=== PATIENT | female | born 1995 | race American Indian/Alaskan Native ===

== ENCOUNTER 2017-06-09 20:56 | Emergency (ER) | payer SELFPAY ==
[2017-06-09 21:30] VITALS: BP 147/86
[2017-06-09] MEDS ORDERED: ASPIRIN PO ONE (21:30)
[2017-06-09 22:01] LABS: Basophils % (Auto) 0.7 % (0.0-1.8); Eosinophils # (Auto) 0.1 K/mm3 (0.0-0.4); Eosinophils % (Auto) 1.4 % (0.0-4.3); Hematocrit 39.3 % (30.3-42.9); Hemoglobin 12.8 gm/dl (10.1-14.3); Lymphocytes # (Auto) 1.7 K/mm3 (1.2-5.4); Lymphocytes % (Auto) 34.8 % (13.4-35.0); Mean Corpuscular HGB Conc 33 % (30-34); Mean Corpuscular Volume 75 fl (79-97); Monocytes # (Auto) 0.4 K/mm3 (0.0-0.8); Platelet Count 202 K/mm3 (140-440); Red Blood Count 5.22 M/mm3 (3.65-5.03); Red Cell Distribution Width 18.5 % (13.2-15.2)
[2017-06-09 22:02] LABS: Mean Corpuscular Hemoglobin 25 pg (28-32)
[2017-06-09 22:48] LABS: BUN/Creatinine Ratio 23; Blood Urea Nitrogen 14 mg/dL (7-17); Calcium 9.4 mg/dL (8.4-10.2); Hemolysis Index 14
== END 2017-06-10 00:22 | disposition left against medical advice (07) ==
LOC: ED 20:56
DX: R07.9 Chest pain, unspecified (principal); R06.02 Shortness of breath; Z53.21 Procedure and treatment not carried out due to patient leaving prior to being seen by health care provider
CPT/HCPCS: 36415; 80048; 84484; 85025; 93005; 93010

== ENCOUNTER 2017-06-19 15:49 | Emergency (ER) | payer SELFPAY ==
[2017-06-19 16:08] VITALS: BP 131/67
--- NOTE | 2017-06-19 17:13 | Emergency Department Report ---
Chief Complaint: Vaginal Bleeding Stated Complaint: VAGINAL BLEEDING - HPI History of Present Illness: 21-year-old female presents with 3 weeks of vaginal bleeding. She denies pain. is a possibility. - Exam Vital Signs: Vital Signs 06/19/17 16:05 Temperature 98.4 F Pulse Rate 72 Respiratory 18 Rate Blood Pressure 131/67 O2 Sat by Pulse 100 Oximetry MSE screening note: Focused history and physical exam performed. Due to findings the following was ordered: ED Disposition for MSE Condition: Stable Referrals: PRIMARY CARE, [Primary Care Provider] - 3-5 Days
[2017-06-19 17:49] LABS: HCG Qualitative,Urine Negative (Negative)
--- NOTE | 2017-06-19 19:11 | Emergency Department Report ---
ED Female HPI - General Chief complaint: Vaginal Bleeding Stated complaint: VAGINAL BLEEDING Time Seen by Provider: 06/19/17 18:06 Source: patient Mode of arrival: Ambulatory Limitations: No Limitations - History of Present Illness Initial comments: 21-year-old 2 para 2 female coming in for vaginal bleeding for approximately 3 weeks. Patient reports that she is passing clots. She is not sure if she is hasn't had a cycle in the year. Patient reports that she is going to 4-5 pads a day she denies any nausea no vomiting no surgeries no past medical history currently in no controls denies any abdominal pain no cramping last menstrual period 05/27/2017. Complaint: vaginal bleeding -: week(s) (3) - Related Data Sexually active: Yes : 2 Para: 2 Previous Rx's Medication Instructions Recorded Last Taken Type medroxyPROGESTERone ACETATE 10 mg PO QDAY 10 Days #10 tablet 06/19/17 Unknown Rx [Provera] Allergies Allergy/AdvReac Type Severity Reaction Status Date / Time No Known Allergies Allergy Verified 06/19/17 16:05 ED Review of Systems ROS: Stated complaint: VAGINAL BLEEDING Other details as noted in HPI Constitutional: denies: chills, fever Eyes: denies: eye pain, eye discharge, vision change ENT: denies: ear pain, throat pain Respiratory: denies: cough, shortness of breath, wheezing Cardiovascular: denies: chest pain, palpitations Endocrine: no symptoms reported Gastrointestinal: denies: abdominal pain, nausea, diarrhea Genitourinary: other (vaginal bleeding) Musculoskeletal: denies: back pain, joint swelling, arthralgia Skin: denies: rash, lesions Neurological: denies: headache, weakness, paresthesias Psychiatric: denies: anxiety, depression Hematological/Lymphatic: denies: easy bleeding, easy bruising ED Past Medical Hx - Past Medical History Hx Hypertension: No Hx CVA: No Hx Heart Attack/AMI: No Hx Congestive Heart Failure: No Hx Diabetes: No Hx Deep Vein Thrombosis: No Hx Pulmonary Embolism: No Hx GERD: No Hx Liver Disease: No Hx Renal Disease: No Hx Sickle Cell Disease: No Hx Arthritis: No Hx Headaches / Migraines: No Hx Seizures: No Hx Kidney Stones: No Hx Psychiatric Treatment: No Hx Asthma: No Hx COPD: No Hx Tuberculosis: No Hx Dementia: No Hx HIV: No - Surgical History Hx Coronary Stent: No Hx Open Heart Surgery: No Hx Internal Defibrillator: No Hx Cholecystectomy: No Hx Appendectomy: No Hx Breast Surgery: No - Social History Smoking Status: Current Some Day Smoker Substance Use Type: Alcohol - Medications Home Medications: Home Medications Medication Instructions Recorded Confirmed Last Taken Type medroxyPROGESTERone ACETATE 10 mg PO QDAY 10 Days #10 tablet 06/19/17 Unknown Rx [Provera] ED Physical Exam - General Limitations: No Limitations General appearance: alert, in no apparent distress - Head Head exam: Present: atraumatic, normocephalic - Eye Eye exam: Present: normal appearance - ENT ENT exam: Present: mucous membranes moist - Neck Neck exam: Present: normal inspection - Respiratory Respiratory exam: Present: normal lung sounds bilaterally. Absent: respiratory distress - Cardiovascular Cardiovascular Exam: Present: regular rate, normal rhythm. Absent: systolic murmur, diastolic murmur, rubs, gallop - GI/Abdominal GI/Abdominal exam: Present: soft, normal bowel sounds - Extremities Exam Extremities exam: Present: normal inspection - Back Exam Back exam: Present: normal inspection - Neurological Exam Neurological exam: Present: alert, oriented X3 - Psychiatric Psychiatric exam: Present: normal affect, normal mood - Skin Skin exam: Present: warm, dry, intact, normal color. Absent: rash ED Course Vital Signs 06/19/17 06/19/17 16:05 18:33 Temperature 98.4 F Pulse Rate 72 Respiratory 18 18 Rate Blood Pressure 131/67 O2 Sat by Pulse 100 Oximetry ED Medical Decision Making - Medical Decision Making Patient's been seen by this provider in fast track. Urine test was negative. Discussed with patient that we will diagnose her with dysfunction uterine bleeding. Will discharge patient on Provera 10 mg one tablet by mouth daily for 10 days. For her to follow up with MANAGER [facility] or primary care provider. Critical care attestation.: If time is entered above; I have spent that time in minutes in the direct care of this critically ill patient, excluding procedure time. ED Disposition Clinical Impression: Dysfunctional uterine bleeding Disposition: DC-01 TO HOME OR SELFCARE Is pt being admited?: No Does the pt Need Aspirin: No Condition: Stable Instructions: Dysfunctional Uterine Bleeding (ED) Additional Instructions: Face take medication as prescribed. Follow-up the primary care provider CORRECTIVE AND MANUAL ARTS THERAPIST for further evaluation of her dysfunctional uterine bleeding. Prescriptions: medroxyPROGESTERone ACETATE [Provera] 10 mg PO QDAY 10 Days #10 tablet Referrals: PRIMARY CARE, [Primary Care Provider] - 3-5 Days [facility] [Provider Group] - 3-5 Days
== END 2017-06-19 18:32 | disposition home or self-care (01) ==
LOC: ED 15:49
DX: N93.8 Other specified abnormal uterine and vaginal bleeding (principal)
CPT/HCPCS: 81025

== ENCOUNTER 2017-07-30 14:51 | Emergency (ER) | payer SELFPAY ==
[2017-07-30 15:47] LABS: Basophils % (Auto) 0.4 % (0.0-1.8); Eosinophils # (Auto) 0.1 K/mm3 (0.0-0.4); Eosinophils % (Auto) 1.3 % (0.0-4.3); Hematocrit 27.7 % (30.3-42.9); Hemoglobin 8.7 gm/dl (10.1-14.3); Lymphocytes # (Auto) 1.5 K/mm3 (1.2-5.4); Mean Corpuscular HGB Conc 32 % (30-34); Mean Corpuscular Volume 74 fl (79-97); Monocytes # (Auto) 0.3 K/mm3 (0.0-0.8); Monocytes % (Auto) 6.4 % (0.0-7.3); Platelet Count 316 K/mm3 (140-440); Red Blood Count 3.75 M/mm3 (3.65-5.03)
[2017-07-30 15:50] LABS: Bilirubin,Urine NEG (Negative); Blood,Urine LG (Negative); Color,Urine Red (Yellow); Mucus,Urine 3+ /HPF; Urobilinogen,Urine < 2.0 mg/dL (<2.0)
[2017-07-30 15:51] LABS: Mean Corpuscular Hemoglobin 23 pg (28-32)
[2017-07-30 15:51] LABS: RBC,Urine > 182.0 /HPF (0.0-6.0)
[2017-07-30] MEDS ORDERED: TYLENOL PO ONE (19:35)
--- NOTE | 2017-07-30 19:52 | Emergency Department Report ---
HPI - General Chief Complaint: Vaginal Bleeding Time Seen by Provider: 07/30/17 18:59 - HPI HPI: The patient is a 21-year-old female who presents for valuation of chest pain. The patient reports episodic chest pain for greater than the past month, pounding in quality when present, moderate in severity, exacerbated with lying flat. She shares that she hasn't lost any history of anxiety. She also has a secondary complaint of prolonged vaginal bleeding for the past one month. She has a history of irregular menstrual periods. The patient denies fever, neck pain, parasthesias, dyspnea, cough, hemoptysis, palpitations, dizziness, syncope , unilateral leg swelling, calf muscle pain. Patient also denies cocaine or other stimulant use, history of DVT or PE, recent immobilization, or history of cancer. ED Past Medical Hx - Past Medical History Hx Hypertension: No Hx CVA: No Hx Heart Attack/AMI: No Hx Congestive Heart Failure: No Hx Diabetes: No Hx Deep Vein Thrombosis: No Hx Pulmonary Embolism: No Hx GERD: No Hx Liver Disease: No Hx Renal Disease: No Hx Sickle Cell Disease: No Hx Arthritis: No Hx Headaches / Migraines: No Hx Seizures: No Hx Kidney Stones: No Hx Psychiatric Treatment: No Hx Asthma: No Hx COPD: No Hx Tuberculosis: No Hx Dementia: No Hx HIV: No - Surgical History Hx Coronary Stent: No Hx Open Heart Surgery: No Hx Internal Defibrillator: No Hx Cholecystectomy: No Hx Appendectomy: No Hx Breast Surgery: No - Social History Smoking Status: Current Some Day Smoker Substance Use Type: Alcohol - Medications Home Medications: Home Medications Medication Instructions Recorded Confirmed Last Taken Type medroxyPROGESTERone ACETATE 10 mg PO QDAY 10 Days #10 tablet 06/19/17 Unknown Rx [Provera] Cyclobenzaprine HCl [Flexeril 5 MG 5 mg PO Q8HR PRN #12 tab 07/30/17 Unknown Rx TAB] ED Review of Systems ROS: Stated complaint: ANXIETY ATTACK/BLOOD CLOTS/CP Other details as noted in HPI Constitutional: denies: fever ENT: denies: throat or neck pain Respiratory: denies: cough, shortness of breath Cardiovascular: reports: chest pain Endocrine: denies unexplained weight loss or gain Gastrointestinal: denies: abdominal pain, nausea Genitourinary: denies: dysuria Musculoskeletal: denies: leg swelling Skin: denies: rash Neurological: denies: headache Hematological/Lymphatic: denies: easy bleeding or easy bruising Psych: denies sadness or hopelessness Physical Exam - Physical Exam Vital Signs: Vital Signs 07/30/17 15:09 Temperature 98 F Pulse Rate 79 Respiratory 16 Rate Blood Pressure 135/70 O2 Sat by Pulse 100 Oximetry Physical Exam: General: well-nourished, well-developed, no acute distress Head: Normocephalic, atraumatic Eyes: normal sclera ENT: Mucous membranes are pink and moist Neck: trachea midline, neck supple, No neck stiffness, no cervical adenopathy Respiratory: Breath sounds equal bilaterally, no wheezing, rales, or rhonchi Cardio: S1 and S2 present, no murmurs, rubs, gallops, capillary refill is brisk Abdomen: Normoactive bowel sounds, soft abdomen, no rigidity, no guarding or rebound tenderness Musc: No pitting edema Skin: No rash Neuro: no facial drooping, normal speech Psych: Normal affect ED Course Vital Signs 07/30/17 15:09 Temperature 98 F Pulse Rate 79 Respiratory 16 Rate Blood Pressure 135/70 O2 Sat by Pulse 100 Oximetry ED Medical Decision Making - Lab Data Result diagrams: 07/30/17 15:19 - Medical Decision Making The patient was seen and examined by myself. The patient is placed on a cutter grind tool technician and continuous pulse ox. On initial evaluation, the patient was found to be in no distress. EKG was negative for findings suggestive of acute cardiac infarct. Labs and imaging are obtained. Chest x-ray is negative for pneumothorax, focal consolidation, pulmonary vascular congestion, pleural effusion, or other obvious acute cardiopulmonary disease process. Lab results revealed low hemoglobin 8.7, but otherwise labs are grossly unrevealing. The patient was reevaluated and reported that their symptoms were markedly improved. As the patient has a JORDY risk score less than 2, and a well's score less than 2, and is PERC negative, the patient is at low risk of ACS or pulmonary emboli etiology of their symptoms. The patient is stable for discharge with outpatient follow-up. The patient is given follow-up and return instructions. The patient expressed understanding and agreed with the plan. The patient is discharged in stable condition. Critical care attestation.: If time is entered above; I have spent that time in minutes in the direct care of this critically ill patient, excluding procedure time. ED Disposition Clinical Impression: Acute chest pain, Vaginal bleeding Disposition: TO HOME OR SELFCARE Is pt being admited?: No Does the pt Need Aspirin: No Condition: Stable Instructions: Chest Pain (ED), Costochondritis (ED), Dysfunctional Uterine Bleeding (ED), Menorrhagia (ED) Referrals: [facility] [Provider Group] - 3-5 Days Time of Disposition: 19:36
[2017-07-30 21:59] VITALS: BP 133/76
== END 2017-07-30 19:48 | disposition home or self-care (01) ==
LOC: ED 14:51
DX: R07.89 Other chest pain (principal); N93.9 Abnormal uterine and vaginal bleeding, unspecified; F17.200 Nicotine dependence, unspecified, uncomplicated
CPT/HCPCS: 36415; 81001; 84702; 85025; 86850; 86900; 86901; 99284

== ENCOUNTER 2020-08-03 07:21 | Emergency (ER) | payer SELFPAY ==
[2020-08-03 07:34] VITALS: BP 138/74
--- NOTE | 2020-08-03 07:39 | Emergency Department Report ---
ED Female HPI - General Chief complaint: Vaginal Bleeding Stated complaint: BLEEDING Time Seen by Provider: 08/03/20 07:34 Source: patient Mode of arrival: Ambulatory Limitations: No Limitations - History of Present Illness Initial comments: The patient was evaluated in the emergency department for symptoms described in the history of present illness. He/she was evaluated in the context of the global COVID-19 pandemic, which necessitated consideration that the patient might be at risk for infection with the virus that causes COVID-19. [facility] protocols and algorithms that pertain to the evaluation of patients at risk for COVID-19 are in a state of rapid change based on information released by regulatory bodies including the CDC and federal and state organizations. These policies and algorithms were followed during the patient's care in the emergency department. Please note that these policies, procedures and recommendations changed on a rapid basis. 24-year-old -[place] female presents to the emergency room for moderate vaginal bleeding for close to 3 weeks. Patient states she has a history of dysfunctional uterine bleeding. She denies any dizziness denies any pelvic pain no cramping no nausea no vomiting no diarrhea. She states she goes through about 5-6 pads a day. MD Complaint: vaginal bleeding Onset/Timin -: week(s) Severity scale (0 -10): 0 Consistency: intermittent Improves with: none Worsens with: none Are you Now?: No Associated Symptoms: vaginal bleeding. denies: vaginal discharge, abdominal pain, nausea/vomiting, fever/chills, headaches, dysuria, rash, shortness of breath, weakness - Related Data Sexually active: Yes Previous Rx's Medication Instructions Recorded Last Taken Type medroxyPROGESTERone ACETATE 10 mg PO QDAY 10 Days #10 tablet 06/19/17 Unknown Rx [Provera] Cyclobenzaprine HCl [Flexeril 5 MG 5 mg PO Q8HR PRN #12 tab 07/30/17 Unknown Rx TAB] Ibuprofen [Motrin] 600 mg PO Q8H PRN #30 tablet 03/20/18 Unknown Rx Iron,Carb/Vit C/Vit B12/Folic 1 each PO DAILY #30 tablet 08/03/20 Unknown Rx [Iron 100 Plus Tablet] medroxyPROGESTERone ACETATE 10 mg PO QDAY #10 tablet 08/03/20 Unknown Rx [Provera] Allergies Allergy/AdvReac Type Severity Reaction Status Date / Time No Known Allergies Allergy Verified 03/20/18 16:24 ED Review of Systems ROS: Stated complaint: BLEEDING Other details as noted in HPI Comment: All other systems reviewed and negative ED Past Medical Hx - Past Medical History Previous Medical History?: No Hx Hypertension: No Hx CVA: No Hx Heart Attack/AMI: No Hx Congestive Heart Failure: No Hx Diabetes: No Hx Deep Vein Thrombosis: No Hx Pulmonary Embolism: No Hx GERD: No Hx Liver Disease: No Hx Renal Disease: No Hx Sickle Cell Disease: No Hx Arthritis: No Hx Headaches / Migraines: No Hx Seizures: No Hx Kidney Stones: No Hx Psychiatric Treatment: No Hx Asthma: No Hx COPD: No Hx Tuberculosis: No Hx Dementia: No Hx HIV: No - Surgical History Past Surgical History?: No Hx Coronary Stent: No Hx Open Heart Surgery: No Hx Internal Defibrillator: No Hx Cholecystectomy: No Hx Appendectomy: No Hx Breast Surgery: No - Social History Smoking Status: Never Smoker Substance Use Type: None - Medications Home Medications: Home Medications Medication Instructions Recorded Confirmed Last Taken Type medroxyPROGESTERone ACETATE 10 mg PO QDAY 10 Days #10 tablet 06/19/17 Unknown Rx [Provera] Cyclobenzaprine HCl [Flexeril 5 MG 5 mg PO Q8HR PRN #12 tab 07/30/17 Unknown Rx TAB] Ibuprofen [Motrin] 600 mg PO Q8H PRN #30 tablet 03/20/18 Unknown Rx Iron,Carb/Vit C/Vit B12/Folic 1 each PO DAILY #30 tablet 08/03/20 Unknown Rx [Iron 100 Plus Tablet] medroxyPROGESTERone ACETATE 10 mg PO QDAY #10 tablet 08/03/20 Unknown Rx [Provera] ED Physical Exam - General Limitations: No Limitations General appearance: alert, in no apparent distress - Head Head exam: Present: atraumatic, normocephalic - Eye Eye exam: Present: normal appearance - ENT ENT exam: Present: normal exam, normal external ear exam - Neck Neck exam: Present: normal inspection, full ROM - Respiratory Respiratory exam: Absent: accessory muscle use - Back Exam Back exam: Present: normal inspection, full ROM - Neurological Exam Neurological exam: Present: alert, oriented X3, normal gait - Psychiatric Psychiatric exam: Present: normal affect, normal mood - Skin Skin exam: Present: warm, dry, intact, normal color. Absent: rash ED Course Vital Signs 08/03/20 07:29 Temperature 97.9 F Pulse Rate 69 Respiratory 16 Rate Blood Pressure 138/74 O2 Sat by Pulse 99 Oximetry ED Medical Decision Making - Lab Data Result diagrams: 08/03/20 08:19 - Medical Decision Making 24-year-old -[place] female presents to the emergency room for moderate vaginal bleeding for close to 3 weeks. Patient states she has a history of dys functional uterine bleeding. She denies any dizziness denies any pelvic pain no cramping no nausea no vomiting no diarrhea. She states she goes through about 5-6 pads a day. CBC, serum hCG. Critical care attestation.: If time is entered above; I have spent that time in minutes in the direct care of this critically ill patient, excluding procedure time. ED Disposition Clinical Impression: Dysfunctional uterine bleeding, Anemia Disposition: - TO HOME OR SELFCARE Is pt being admited?: No Does the pt Need Aspirin: No Condition: Stable Instructions: Abnormal Uterine Bleeding, [id number] Additional Instructions: Please take the Provera as prescribed. It is very important that you start taking iron supplement as you are starting to develop anemia. It is important that you follow-up with an [facility]ER in the next 5 to 7 days to be reevaluated and see why you keep having abnormal uterine bleeding. I have listed several below for your convenience. Prescriptions: Iron,Carb/Vit C/Vit B12/Folic [Iron 100 Plus Tablet] 1 each PO DAILY #30 tablet medroxyPROGESTERone ACETATE [Provera] 10 mg PO QDAY #10 tablet Referrals: [facility] [Provider Group] - 3-5 Days [facility] [Provider Group] - 3-5 Days [facility] [Provider Group] - 3-5 Days Forms: Work/School Release Form(ED)
[2020-08-03 08:33] LABS: Basophils % (Auto) 0.8 % (0.0-1.8); Eosinophils # (Auto) 0.1 K/mm3 (0.0-0.4); Eosinophils % (Auto) 1.8 % (0.0-4.3); Hematocrit 27.4 % (30.3-42.9); Hemoglobin 8.1 gm/dl (10.1-14.3); Lymphocytes # (Auto) 1.7 K/mm3 (1.2-5.4); Lymphocytes % (Auto) 31.1 % (13.4-35.0); Mean Corpuscular HGB Conc 30 % (30-34); Monocytes # (Auto) 0.4 K/mm3 (0.0-0.8); Monocytes % (Auto) 8.3 % (0.0-7.3); Platelet Count 282 K/mm3 (140-440); Red Blood Count 4.63 M/mm3 (3.65-5.03)
[2020-08-03 08:45] LABS: Mean Corpuscular Volume 59 fl (79-97); Red Cell Distribution Width 21.4 % (13.2-15.2)
== END 2020-08-03 09:05 | disposition home or self-care (01) ==
LOC: ED 07:21
DX: N93.8 Other specified abnormal uterine and vaginal bleeding (principal); D64.9 Anemia, unspecified; Z79.899 Other long term (current) drug therapy
CPT/HCPCS: 36415; 84702; 85025; 99283

== ENCOUNTER 2020-08-18 18:19 | Emergency (ER) | payer SELFPAY ==
[2020-08-18 18:31] VITALS: BP 135/73
--- NOTE | 2020-08-18 18:49 | Event Note ---
ED Screening Note Date of service: 08/18/20 Time: 18:46 ED Screening Note: 24 yr old female presents with abnl vag bleeding. She states she has been bleeding abnl since end of May 2020 She came here on 08/03/20 for her symptoms. She was prescribed an medication that started with "M' which she took for 10 days. She states bleeding stopped but she started bleeding again this past thursday. She reports heavy bleeding with clots since thursday. She states she has used 44 pads out of 48 pack She reports low abd cramps She took preg test since thursday and it was neg This initial assessment/diagnostic orders/clinical plan/treatment(s) is/are subject to change based on patients health status, clinical progression and re- assessment by fellow clinical providers in the ED. Further treatment and workup at subsequent clinical providers discretion. Patient/guardian urged not to elope from the ED as their condition may be serious if not clinically assessed and managed. Initial orders include: Labs
[2020-08-18 19:14] LABS: Bilirubin,Urine NEG (Negative); Blood,Urine LG (Negative); Color,Urine Red (Yellow); Urobilinogen,Urine < 2.0 mg/dL (<2.0)
[2020-08-18 19:31] LABS: Mucus,Urine FEW /HPF
[2020-08-18 19:32] LABS: RBC,Urine > 182.0 /HPF (0.0-6.0)
[2020-08-18 19:36] LABS: Mean Corpuscular HGB Conc 29 % (30-34); Platelet Count 271 K/mm3 (140-440); Red Blood Count 4.87 M/mm3 (3.65-5.03)
[2020-08-18 19:37] LABS: Hematocrit 31.4 % (30.3-42.9); Hemoglobin 9.2 gm/dl (10.1-14.3); Mean Corpuscular Volume 65 fl (79-97); Red Cell Distribution Width 26.7 % (13.2-15.2)
[2020-08-18 19:49] LABS: Alanine Aminotransferase 12 units/L (7-56); Albumin 4.2 g/dL (3.9-5); BUN/Creatinine Ratio 18; Blood Urea Nitrogen 14 mg/dL (7-17); Calcium 9.1 mg/dL (8.4-10.2); Hemolysis Index 7
--- NOTE | 2020-08-18 20:21 | Emergency Department Report ---
ED Female HPI - General Chief complaint: Vaginal Bleeding Stated complaint: DISFUNCTIONAL BLEEDING Time Seen by Provider: 08/18/20 19:45 Source: patient Mode of arrival: Ambulatory Limitations: No Limitations - History of Present Illness Initial comments: Patient is a 24-year-old female presents emergency room with complaints of abnormal uterine bleeding that began last night. She states that she began having heavy bleeding last night. She states today it became slightly gold wheel blocker and polisher and she is only used approximately four pads for the day. She states that she had her last menstrual cycle on August 02 and it lasted approximately 3 weeks. She has a history of irregular menstrual cycles. She is not currently on any control. She has not seen PACKAGING ASSOCIATE in a year. She denies any abdominal pain, fever, nausea, vomiting, diarrhea, urinary symptoms, abnormal vaginal discharge. No past medical history. No allergies to medications. She denies any cigarette use. She denies any history of PE/DVT. She denies any cardiac history. - Related Data Previous Rx's Medication Instructions Recorded Last Taken Type Cyclobenzaprine HCl [Flexeril 5 MG 5 mg PO Q8HR PRN #12 tab 07/30/17 Unknown Rx TAB] Ibuprofen [Motrin] 600 mg PO Q8H PRN #30 tablet 03/20/18 Unknown Rx Iron,Carb/Vit C/Vit B12/Folic 1 each PO DAILY #30 tablet 08/03/20 Unknown Rx [Iron 100 Plus Tablet] medroxyPROGESTERone ACETATE 10 mg PO QDAY #10 tablet 08/03/20 Unknown Rx [Provera] Docusate Sodium [Colace] 100 mg PO BID #60 capsule 08/18/20 Unknown Rx Ferrous Sulfate [Ferrous Sulfate 324 mg PO DAILY #30 tablet. 08/18/20 Unknown Rx 324 MG] medroxyPROGESTERone ACETATE 10 mg PO QDAY 10 Days #10 tablet 08/18/20 Unknown Rx [Provera] Allergies Allergy/AdvReac Type Severity Reaction Status Date / Time No Known Allergies Allergy Verified 03/20/18 16:24 ED Review of Systems ROS: Stated complaint: DISFUNCTIONAL BLEEDING Other details as noted in HPI Comment: All other systems reviewed and negative ED Past Medical Hx - Past Medical History Hx Hypertension: No Hx CVA: No Hx Heart Attack/AMI: No Hx Congestive Heart Failure: No Hx Diabetes: No Hx Deep Vein Thrombosis: No Hx Pulmonary Embolism: No Hx GERD: No Hx Liver Disease: No Hx Renal Disease: No Hx Sickle Cell Disease: No Hx Arthritis: No Hx Headaches / Migraines: No Hx Seizures: No Hx Kidney Stones: No Hx Psychiatric Treatment: No Hx Asthma: No Hx COPD: No Hx Tuberculosis: No Hx Dementia: No Hx HIV: No - Surgical History Hx Coronary Stent: No Hx Open Heart Surgery: No Hx Internal Defibrillator: No Hx Cholecystectomy: No Hx Appendectomy: No Hx Breast Surgery: No - Social History Smoking Status: Never Smoker Substance Use Type: Alcohol - Medications Home Medications: Home Medications Medication Instructions Recorded Confirmed Last Taken Type Cyclobenzaprine HCl [Flexeril 5 MG 5 mg PO Q8HR PRN #12 tab 07/30/17 Unknown Rx TAB] Ibuprofen [Motrin] 600 mg PO Q8H PRN #30 tablet 03/20/18 Unknown Rx Iron,Carb/Vit C/Vit B12/Folic 1 each PO DAILY #30 tablet 08/03/20 Unknown Rx [Iron 100 Plus Tablet] medroxyPROGESTERone ACETATE 10 mg PO QDAY #10 tablet 08/03/20 Unknown Rx [Provera] Docusate Sodium [Colace] 100 mg PO BID #60 capsule 08/18/20 Unknown Rx Ferrous Sulfate [Ferrous Sulfate 324 mg PO DAILY #30 tablet.dr 08/18/20 Unknown Rx 324 MG] medroxyPROGESTERone ACETATE 10 mg PO QDAY 10 Days #10 tablet 08/18/20 Unknown Rx [Provera] ED Physical Exam - General Limitations: No Limitations General appearance: alert, in no apparent distress - Head Head exam: Present: atraumatic, normocephalic - Eye Eye exam: Present: normal appearance - ENT ENT exam: Present: mucous membranes moist - Respiratory Respiratory exam: Present: normal lung sounds bilaterally. Absent: respiratory distress, wheezes, rales, rhonchi, stridor, chest wall tenderness, accessory muscle use, decreased breath sounds, prolonged expiratory - Cardiovascular Cardiovascular Exam: Present: regular rate, normal rhythm, normal heart sounds. Absent: systolic murmur, diastolic murmur, rubs, gallop - GI/Abdominal GI/Abdominal exam: Present: soft, normal bowel sounds. Absent: distended, tenderness, guarding, rebound, rigid - Neurological Exam Neurological exam: Present: alert, oriented X3 - Psychiatric Psychiatric exam: Present: normal affect, normal mood - Skin Skin exam: Present: warm, dry, intact ED Course Vital Signs 08/18/20 18:24 Temperature 98.0 F Pulse Rate 93 H Respiratory 18 Rate Blood Pressure 135/73 O2 Sat by Pulse 93 Oximetry ED Medical Decision Making - Lab Data Result diagrams: 08/18/20 19:14 08/18/20 19:14 Lab Results 08/18/20 08/18/20 08/18/20 Range/Units 19:14 19:14 19:14 WBC 6.1 (4.5-11.0) K/mm3 RBC 4.87 (3.65-5.03) M/mm3 Hgb 9.2 L (10.1-14.3) gm/dl Hct 31.4 (30.3-42.9) % MCV 65 L (79-97) fl MCH 19 L (28-32) pg MCHC 29 L (30-34) % RDW 26.7 H (13.2-15.2) % Plt Count 271 (140-440) K/mm3 Add Manual Diff Complete Total Counted 100 Seg Neuts % (Manual) 67.0 (40.0-70.0) % Lymphocytes % (Manual) 25.0 (13.4-35.0) % Monocytes % (Manual) 8.0 H (0.0-7.3) % Nucleated RBC % Not Reportable Seg Neutrophils # Man 4.1 (1.8-7.7) K/mm3 Band Neutrophils # 0.0 K/mm3 Lymphocytes # (Manual) 1.5 (1.2-5.4) K/mm3 Abs React Lymphs (Man) 0.0 K/mm3 Monocytes # (Manual) 0.5 (0.0-0.8) K/mm3 Eosinophils # (Manual) 0.0 (0.0-0.4) K/mm3 Basophils # (Manual) 0.0 (0.0-0.1) K/mm3 Metamyelocytes # 0.0 K/mm3 Myelocytes # 0.0 K/mm3 Promyelocytes # 0.0 K/mm3 Blast Cells # 0.0 K/mm3 WBC Morphology Not Reportable Hypersegmented Neuts Not Reportable Hyposegmented Neuts Not Reportable Hypogranular Neuts Not Reportable Smudge Cells Not Reportable Toxic Granulation Not Reportable Toxic Vacuolation Not Reportable Dohle Bodies Not Reportable Pelger-Huet Anomaly Not Reportable Xu Rods Not Reportable Platelet Estimate Consistent w auto Clumped Platelets Not Reportable Plt Clumps, EDTA Not Reportable Large Platelets Rare Giant Platelets Rare Platelet Satelliting Not Reportable Plt Morphology Comment Not Reportable RBC Morphology Not Reportable Dimorphic RBCs Not Reportable Polychromasia Rare Hypochromasia 2+ Poikilocytosis Not Reportable Anisocytosis 3+ Microcytosis 1+ Macrocytosis Not Reportable Spherocytes Not Reportable Pappenheimer Bodies Not Reportable Sickle Cells Not Reportable Target Cells Not Reportable Tear Drop Cells Rare Ovalocytes Few Helmet Cells Not Reportable [place] Bodies Not Reportable [place] Rings Not Reportable [employer] Cells Not Reportable Bite Cells Not Reportable Crenated Cell Not Reportable Elliptocytes Not Reportable Acanthocytes (Spur) Not Reportable Rouleaux Not Reportable Hemoglobin C Crystals Not Reportable Schistocytes Not Reportable Malaria parasites Not Reportable Jeff Bodies Not Reportable Hem Pathologist Commnt No Sodium 136 L (137-145) mmol/L Potassium 4.0 (3.6-5.0) mmol/L Chloride 103.4 (98-107) mmol/L Carbon Dioxide 23 (22-30) mmol/L Anion Gap 14 mmol/L BUN 14 (7-17) mg/dL Creatinine 0.8 (0.6-1.2) mg/dL Estimated GFR > 60 ml/min BUN/Creatinine Ratio 18 % Glucose 100 (65-100) mg/dL Calcium 9.1 (8.4-10.2) mg/dL Total Bilirubin 0.40 (0.1-1.2) mg/dL AST 16 (5-40) units/L ALT 12 (7-56) units/L Alkaline Phosphatase 63 (35-129) units/L Total Protein 7.0 (6.3-8.2) g/dL Albumin 4.2 (3.9-5) g/dL Albumin/Globulin Ratio 1.5 % HCG, Qual Negative (Negative) Urine Color (Yellow) Urine Turbidity (Clear) Urine pH (5.0-7.0) Ur Specific [place] (1.003-1.030) Urine Protein (Negative) mg/dL Urine Glucose (UA) (Negative) mg/dL Urine Ketones (Negative) mg/dL Urine Blood (Negative) Urine Nitrite (Negative) Urine Bilirubin (Negative) Urine Urobilinogen (<2.0) mg/dL Ur Leukocyte Esterase (Negative) Urine WBC (Auto) (0.0-6.0) /HPF Urine RBC (Auto) (0.0-6.0) /HPF U Epithel Cells (Auto) (0-13.0) /HPF Urine Mucus /HPF // Range/Units Unknown WBC (4.5-11.0) K/mm3 RBC (3.65-5.03) M/mm3 Hgb (10.1-14.3) gm/dl Hct (30.3-42.9) % MCV (79-97) fl MCH (28-32) pg MCHC (30-34) % RDW (13.2-15.2) % Plt Count (140-440) K/mm3 Add Manual Diff Total Counted Seg Neuts % (Manual) (40.0-70.0) % Lymphocytes % (Manual) (13.4-35.0) % Monocytes % (Manual) (0.0-7.3) % Nucleated RBC % Seg Neutrophils # Man (1.8-7.7) K/mm3 Band Neutrophils # K/mm3 Lymphocytes # (Manual) (1.2-5.4) K/mm3 Abs React Lymphs (Man) K/mm3 Monocytes # (Manual) (0.0-0.8) K/mm3 Eosinophils # (Manual) (0.0-0.4) K/mm3 Basophils # (Manual) (0.0-0.1) K/mm3 Metamyelocytes # K/mm3 Myelocytes # K/mm3 Promyelocytes # K/mm3 Blast Cells # K/mm3 WBC Morphology Hypersegmented Neuts Hyposegmented Neuts Hypogranular Neuts Smudge Cells Toxic Granulation Toxic Vacuolation Dohle Bodies Pelger-Huet Anomaly Xu Rods Platelet Estimate Clumped Platelets Plt Clumps, EDTA Large Platelets Giant Platelets Platelet Satelliting Plt Morphology Comment RBC Morphology Dimorphic RBCs Polychromasia Hypochromasia Poikilocytosis Anisocytosis Microcytosis Macrocytosis Spherocytes Pappenheimer Bodies Sickle Cells Target Cells Tear Drop Cells Ovalocytes Helmet Cells [place] Bodies [place] Rings [employer] Cells Bite Cells Crenated Cell Elliptocytes Acanthocytes (Spur) Rouleaux Hemoglobin C Crystals Schistocytes Malaria parasites Jeff Bodies Hem Pathologist Commnt Sodium (137-145) mmol/L Potassium (3.6-5.0) mmol/L Chloride (98-107) mmol/L Carbon Dioxide (22-30) mmol/L Anion Gap mmol/L BUN (7-17) mg/dL Creatinine (0.6-1.2) mg/dL Estimated GFR ml/min BUN/Creatinine Ratio % Glucose (65-100) mg/dL Calcium (8.4-10.2) mg/dL Total Bilirubin (0.1-1.2) mg/dL AST (5-40) units/L ALT (7-56) units/L Alkaline Phosphatase (35-129) units/L Total Protein (6.3-8.2) g/dL Albumin (3.9-5) g/dL Albumin/Globulin Ratio % HCG, Qual (Negative) Urine Color Red (Yellow) Urine Turbidity Turbid (Clear) Urine pH 5.0 (5.0-7.0) Ur Specific [place] 1.032 H (1.003-1.030) Urine Protein 100 mg/dl (Negative) mg/dL Urine Glucose (UA) 50 (Negative) mg/dL Urine Ketones Neg (Negative) mg/dL Urine Blood Lg (Negative) Urine Nitrite Neg (Negative) Urine Bilirubin Neg (Negative) Urine Urobilinogen < 2.0 (<2.0) mg/dL Ur Leukocyte Esterase Neg (Negative) Urine WBC (Auto) 22.0 H (0.0-6.0) /HPF Urine RBC (Auto) > 182.0 (0.0-6.0) /HPF U Epithel Cells (Auto) 3.0 (0-13.0) /HPF Urine Mucus Few /HPF - Medical Decision Making Patient is a 24-year-old female presents emergency room with complaints of abnormal uterine bleeding that began last night. She states that she began havi ng heavy bleeding last night. She states today it became slightly gold wheel blocker and polisher and she is only used approximately four pads for the day. She states that she had her last menstrual cycle on August 02 and it lasted approximately 3 weeks. She has a history of irregular menstrual cycles. She is not currently on any control. She has not seen PACKAGING ASSOCIATE in a year. She denies any abdominal pain, fever, nausea, vomiting, diarrhea, urinary symptoms, abnormal vaginal discharge. No past medical history. No allergies to medications. She denies any cigarette use. She denies any history of PE/DVT. She denies any cardiac history. Vitals are stable, initial triage vitals entered incorrectly, the hea rt rate was placed in the oxygen saturation section, patient's oxygen saturation is 100% on room air. Labs are stable, H&H has improved from previous. H&H is 9.2/31.4. Patient is not . UA shows many red blood cells, there is a small amount of white blood cells, there is no leukocyte esterase, no nitrites, patient is not having urinary symptoms, do not suspect UTI, likely due to contamination. Patient has no abdominal tenderness on exam, no guarding, no rebound, no rigidity, normal bowel sounds, no peritoneal signs. Patient has no clinical signs of significant bleeding. Discussed with patient in detail the importance of following up with PACKAGING ASSOCIATE as she has a long charted history of irregular menstrual cycles. Patient does not have any significant contraindications to Provera use. Advised patient that we would give her a prescription for Provera at this time, but she needs to see an PACKAGING ASSOCIATE as she cannot continuously receive Provera prescriptions due to the risk of them in creasing hypercoagulability leading to VTE. She verbalized understanding. Patient given prescription for Provera, ferrous sulfate, Colace. Advised patient Please take medication as prescribed. Increase your water intake. Please eat a iron rich diet. Follow-up with PACKAGING ASSOCIATE. Return to emergency room for new or worsening symptoms. - Differential Diagnosis AUB, endometriosis, fibroids, hemorrhagic cyst, adenomyosis, ectopic Critical care attestation.: If time is entered above; I have spent that time in minutes in the direct care of this critically ill patient, excluding procedure time. ED Disposition Clinical Impression: Abnormal uterine bleeding (AUB), Microcytic anemia Disposition: - TO HOME OR SELFCARE Is pt being admited?: No Does the pt Need Aspirin: No Condition: Stable Instructions: Abnormal Uterine Bleeding, Iron-Rich Diet Additional Instructions: Please take medication as prescribed. Increase your water intake. Please eat a iron rich diet. Follow-up with PACKAGING ASSOCIATE. Return to emergency room for new or worsening symptoms. Prescriptions: Docusate Sodium [Colace] 100 mg PO BID #60 capsule Ferrous Sulfate [Ferrous Sulfate 324 MG] 324 mg PO DAILY #30 tablet. medroxyPROGESTERone ACETATE [Provera] 10 mg PO QDAY 10 Days #10 tablet Referrals: [facility] [Provider Group] - 2-3 Days [facility] [Provider Group] - 2-3 Days [facility] [Provider Group] - 2-3 Days [facility] [Primary Care Provider] - 2-3 Days Time of Disposition: 20:19 Print Language: SAUDI ARABIAN
[2020-08-18 20:35] LABS: Total Cells Counted 100
[2020-08-18 20:36] LABS: Hypochromasia 2+
[2020-08-18 20:37] LABS: Anisocytosis 3+; Ovalocytes Few; Tear Drop Cells Rare
[2020-08-18 20:38] LABS: Large Platelets Rare
[2020-08-18 20:41] LABS: Giant Platelets Rare
[2020-08-18 20:42] LABS: Platelet Estimate Consistent w Auto
== END 2020-08-18 20:25 | disposition home or self-care (01) ==
LOC: ED 18:19
DX: D50.9 Iron deficiency anemia, unspecified (principal); N93.9 Abnormal uterine and vaginal bleeding, unspecified; Z79.899 Other long term (current) drug therapy
CPT/HCPCS: 36415; 80053; 81001; 84703; 85007; 85025; 87086; 99283